=== PATIENT | female | born 1995 | race African-American/Black ===

== ENCOUNTER 2016-08-01 15:11 | Emergency (ER) | payer OTHER ==
[~2016-08-01] VITALS: Ht 162.6 cm; Wt 90.7 kg
[2016-08-01] MEDS ORDERED: NORCO 5-325 TA1 EACH PO (16:18)
[2016-08-01] MEDS ORDERED: BACLOFEN 10MG T10 MG PO (16:18)
[2016-08-01] MEDS ORDERED: IBUPROFEN 800800 MG PO (16:18)
[2016-08-01 17:16] VITALS: BP 113/90
== END 2016-08-01 17:17 | disposition home or self-care (01) ==
LOC: ER 15:11
DX: S63.592A Other specified sprain of left wrist, initial encounter (principal); S83.8X1A Sprain of other specified parts of right knee, initial encounter; M54.89 Other dorsalgia; V89.2XXA Person injured in unspecified motor-vehicle accident, traffic, initial encounter; Y93.89 Activity, other specified; Y92.89 Other specified places as the place of occurrence of the external cause; Y99.8 Other external cause status

== ENCOUNTER 2016-08-03 12:27 | Emergency (ER) | payer OTHER ==
[~2016-08-03] VITALS: Ht 162.6 cm; Wt 90.7 kg
[~2016-08-03 12:27] MED LIST: BACLOFEN 10MG T10 MG PO; IBUPROFEN 800800 MG PO; NORCO 5-325 TA1 EACH PO
[2016-08-03 12:33] VITALS: BP 126/87
== END 2016-08-03 15:06 | disposition home or self-care (01) ==
LOC: ER 12:27
DX: S39.012A Strain of muscle, fascia and tendon of lower back, initial encounter (principal); S29.012A Strain of muscle and tendon of back wall of thorax, initial encounter; V43.62XA Car passenger injured in collision with other type car in traffic accident, initial encounter; Y93.I9 Activity, other involving external motion; Y92.488 Other paved roadways as the place of occurrence of the external cause; Y99.9 Unspecified external cause status; D56.3 Thalassemia minor

== ENCOUNTER 2017-01-10 22:03 | Emergency (ER) | payer OTHER ==
[~2017-01-10] VITALS: Ht 162.6 cm; Wt 88.5 kg
[2017-01-10 23:00] VITALS: BP 150/80
[2017-01-10] MEDS ORDERED: BIRTH CONTROL (23:01)
[2017-01-10] MEDS ORDERED: [UNRECOGNIZED DRUG - REMARK] (23:01)
[2017-01-10] MEDS ORDERED: NAPROSYN500 MG PO (23:06)
== END 2017-01-10 23:22 | disposition home or self-care (01) ==
LOC: ER 22:03
DX: J06.9 Acute upper respiratory infection, unspecified (principal); M94.0 Chondrocostal junction syndrome [Tietze]; F10.99 Alcohol use, unspecified with unspecified alcohol-induced disorder

== ENCOUNTER 2017-06-30 09:54 | Emergency (ER) | payer OTHER ==
[~2017-06-30] VITALS: Ht 162.6 cm; Wt 90.7 kg
[~2017-06-30 09:54] MED LIST changes: +BIRTH CONTROL; +FLEXERIL PO; +NAPROSYN500 MG PO; +[UNRECOGNIZED DRUG - REMARK]
[2017-06-30 11:06] LABS: URINE BILIRUBIN NEGATIVE (Negative); URINE BLOOD 3+ (Negative); URINE GLUCOSE-RANDOM* NEGATIVE (Negative); URINE KETONES NEGATIVE (Negative); URINE LEUKOCYTES NEGATIVE (Negative); URINE NITRITE NEGATIVE (Negative); URINE PROTEIN (DIPSTICK) NEGATIVE (Negative); URINE UROBILINOGEN 0.2 E.U./dl (0.2-1.0)
[2017-06-30 11:12] LABS: URINE CLARITY CLOUDY; URINE COLOR PINKISH
[2017-06-30 11:13] LABS: BACTERIA 1-9 Few /HPF (None Seen); CASTS None Seen /LPF (None Seen); CRYSTALS None Seen /LPF (None Seen); SQUAMOUS 0-3 Few /LPF (0-3); URINE RBC >20 Many /HPF (0-2); URINE WBC 0-5 Rare /HPF (0-5)
[2017-06-30 11:34] LABS: HEMOGLOBIN 11.1 gm/dL (12.0-15.0); MCH 20.4 pg (26.0-34.0); MCHC 31.6 g/dL (28.0-37.0); MCV 64.6 fL (80.0-100.0); RBC 5.42 mil/uL (4.20-5.00); RDW 16.1 % (10.5-14.5); WBC 13.5 thou/uL (4.0-11.0)
== END 2017-06-30 12:37 | disposition home or self-care (01) ==
LOC: ER 09:54
PROVIDERS: Emergency Medicine; Physician Assistant
DX: N93.8 Other specified abnormal uterine and vaginal bleeding (principal)

== ENCOUNTER 2018-11-18 12:37 | Emergency (ER) | payer OTHER ==
[~2018-11-18] VITALS: Ht 162.6 cm; Wt 93.9 kg
[2018-11-18 13:08] LABS: URINE BILIRUBIN NEGATIVE (Negative); URINE BLOOD NEGATIVE (Negative); URINE COLOR YELLOW; URINE GLUCOSE-RANDOM* NEGATIVE (Negative); URINE KETONES NEGATIVE (Negative); URINE NITRITE-REFLEX NEGATIVE (Negative); URINE PROTEIN (DIPSTICK) NEGATIVE (Negative); URINE SPECIFIC GRAVITY 1.015 (1.005-1.035); URINE UROBILINOGEN 0.2 E.U./dl (0.2-1.0)
[2018-11-18 13:11] LABS: URINE CLARITY HAZY; URINE LEUKOCYTES-REFLEX 3+ (Negative)
[2018-11-18 13:38] LABS: CASTS None Seen /LPF (None Seen); CRYSTALS None Seen /LPF (None Seen); SQUAMOUS >10 Many /LPF (0-3); URINE WBC-REFLEX >25 Many /HPF (0-5)
[2018-11-18 13:39] LABS: URINE RBC None Seen /HPF (0-2)
[2018-11-18 13:53] LABS: HEMATOCRIT 33.1 % (37.0-47.0); HEMOGLOBIN 10.5 gm/dL (12.0-15.0); MCH 20.7 pg (26.0-34.0); MCHC 31.8 g/dL (28.0-37.0); PLATELET COUNT 334 thou/uL (150-400); RBC 5.09 mil/uL (4.20-5.00); RDW 15.8 % (10.5-14.5); WBC 8.6 thou/uL (4.0-11.0)
[2018-11-18 14:03] LABS: CALCIUM 9.1 mg/dL (8.5-10.1); CREATININE 0.8 mg/dL (0.6-1.0); POTASSIUM 4.4 mmol/L (3.5-5.1)
[2018-11-18 14:09] LABS: ALBUMIN 2.9 g/dL (3.4-5.0); TOTAL BILIRUBIN 0.4 mg/dL (<0.1-1.0); TOTAL PROTEIN 7.4 g/dL (6.4-8.2)
[2018-11-18] MEDS ORDERED: ZOFRAN ODT4 MG PO (14:09)
[2018-11-18 14:19] LABS: ABSOLUTE NEUTROPHILS 5.3 thou/uL (1.4-8.2); ANISOCYTOSIS 1+; MICROCYTES 2+
[2018-11-18 14:20] LABS: HYPOCHROMASIA SLIGHT; POLYCHROMASIA OCCASIONAL
[2018-11-18 15:00] VITALS: BP 119/70
== END 2018-11-18 15:00 | disposition home or self-care (01) ==
LOC: ER 12:37
PROVIDERS: Nurse Practitioner Family
DX: R11.2 Nausea with vomiting, unspecified (principal)

== ENCOUNTER 2019-01-24 14:10 | Emergency (ER) | payer OTHER ==
[~2019-01-24] VITALS: Ht 162.6 cm; Wt 90.7 kg
[~2019-01-24 14:10] MED LIST changes: +ZOFRAN ODT4 MG PO
[2019-01-24] MEDS ORDERED: ULTRAM 50MG TAB50 MG PO (15:56)
[2019-01-24] MEDS ORDERED: MOBIC15 MG PO (15:56)
[2019-01-24 16:13] VITALS: BP 133/94
== END 2019-01-24 16:14 | disposition home or self-care (01) ==
LOC: ER 14:10
DX: S05.12XA Contusion of eyeball and orbital tissues, left eye, initial encounter (principal); S80.211A Abrasion, right knee, initial encounter; Y04.0XXA Assault by unarmed brawl or fight, initial encounter; Y93.89 Activity, other specified; Y92.89 Other specified places as the place of occurrence of the external cause; Y99.8 Other external cause status